=== PATIENT | male | born 1960 | race Caucasian/White ===

== ENCOUNTER 2022-09-20 12:50 | Emergency (ER) | payer OTHER ==
[~2022-09-20] VITALS: Ht 177.8 cm; Wt 105.7 kg
--- NOTE | 2022-09-20 12:50 | NUR ---
RECEIVED PT 61 YRS MALE CAME FROM HOME BY LETITIA C/O DIZZNESS FOR 2 DAY AWAKE AND ALERT NO WEEKNESS no sob or distress skin warm and dry to touch
--- NOTE | 2022-09-20 13:00 | NUR ---
SEEN BY DR. GONZALEZ
[2022-09-20 13:22] LABS: BASOPHILS % (AUTO) 0.2 % (0.0-2.0); EOSINOPHILS % (AUTO) 1.9 % (0.0-6.0); HEMATOCRIT 50 % (39-51); HEMOGLOBIN 16.4 g/dL (13.5-17.5); LYMPHOCYTES # (AUTO) 1.5 K/uL (0.8-4.8); LYMPHOCYTES % (AUTO) 19.9 % (20.0-44.0); MEAN CORPUSCULAR HGB CONC 33 g/dl (31.0-36.0); MEAN CORPUSCULAR VOLUME 91 fL (80-96); MONOCYTES # (AUTO) 0.5 K/uL (0.1-1.30); MONOCYTES % (AUTO) 6.9 % (2.0-12.0); NEUTROPHILS # (AUTO) 5.5 K/uL (1.8-8.9); NEUTROPHILS % (AUTO) 71.1 % (43.0-81.0); PLATELET COUNT (AUTO) 178 K/uL (150-450); RED BLOOD CELL COUNT(AUTO) 5.49 MIL/uL (4.5-6.0); WHITE BLOOD COUNT (AUTO) 7.7 K/uL (4.3-11.0)
--- NOTE | 2022-09-20 13:30 | NUR ---
BLOOD DROW BY LAB TACH AT BED SIDE
[2022-09-20 13:38] LABS: CALCIUM, SERUM 8.9 mg/dL (8.5-10.1); CARBON DIOXIDE 27 mmol/L (21-32); CHLORIDE 104 mmol/L (98-107); CREATININE 0.9 mg/dL (0.6-1.3); GLUCOSE 122 mg/dL (74-106); POTASSIUM 3.9 mmol/L (3.5-5.1); SODIUM SERUM 135 mmol/L (136-145); UREA NITROGEN, BLOOD 11 mg/dL (7-18)
[2022-09-20 13:53] LABS: ALANINE AMINOTRANSFERASE 32 U/L (12-78); ALBUMIN 3.6 g/dL (3.4-5.0); ALKALINE PHOSPHATASE 64 U/L (46-116); ASPARTATE AMINOTRANSFERASE 18 U/L (15-37); BILIRUBIN,DIRECT 0.2 mg/dL (0.0-0.2); BILIRUBIN,TOTAL 0.7 mg/dL (0.2-1.0); TOTAL PROTEIN, SERUM 7.2 g/dL (6.4-8.2)
[2022-09-20] MEDS ORDERED: IOHEXOL-350 100 ML VIAL IV ONE (14:15)
[2022-09-20] MEDS ORDERED: CT SWABBABLE VALVE TRANS SET 1 EA INFUS.SET MC ONE (14:16)
[2022-09-20] MEDS ORDERED: IV NS 0.9% 250 ML IV ONE (14:16)
--- NOTE | 2022-09-20 14:42 | NUR ---
[facility] SENT TO LAB
--- NOTE | 2022-09-20 14:43 | NUR ---
TO [facility]IA [facility]
[2022-09-20] MEDS ORDERED: EMTR1TAB12 PO (15:06)
[2022-09-20] MEDS ORDERED: ATOR20TA PO (15:06)
--- NOTE | 2022-09-20 15:15 | NUR ---
VITAL SIGNS WITHIN NORMAL LIMITS. NO WEEKNEESS NO SOB OR PAIN
--- NOTE | 2022-09-20 15:30 | NUR ---
AMBLATE NO WEEKEENS
--- NOTE | 2022-09-20 16:32 | NUR ---
CALLED [facility] [phone] MCCLAIN WILL CALL US BACK PER [facility]
[2022-09-20] MEDS ORDERED: ASPIRIN 325 MG TABLET PO ONE (17:00)
--- NOTE | 2022-09-20 17:14 | NUR ---
CALL FROM ARCHANA ROSE [facility] W/ TRANSFER INFO: GOING TO [facility], REPORT TO [phone], ACCEPTED BY DR LOCKWOOD, [facility] ETA IN 30 MINUTES.
--- NOTE | 2022-09-20 18:00 | NUR ---
HAND OFF TO Yuko KIM RN TO [facility]
[2022-09-20] MEDS ORDERED: ASPIRIN 325 MG TABLET ONE (18:19)
[2022-09-20 18:25] VITALS: BP 143/90
== END 2022-09-20 18:41 | disposition short-term general hospital (02) ==
LOC: ER 13:13
DX: R42 Dizziness and giddiness (principal); G91.2 (Idiopathic) normal pressure hydrocephalus; R26.89 Other abnormalities of gait and mobility; Z20.822 Contact with and (suspected) exposure to COVID-19; R03.0 Elevated blood-pressure reading, without diagnosis of hypertension
CPT/HCPCS: 99291; 70498; 87426; 93005; 71045; 70496; 85025; 80048; 80076; 36415; 84484; 85730; 70450; J7050; Q9967; C9803